=== PATIENT | female | born 1990 | race Caucasian/White ===

== ENCOUNTER 2016-10-29 18:33 | Emergency (ER) | payer OTHER ==
[~2016-10-29] VITALS: Ht 172.7 cm; Wt 113.4 kg
--- NOTE | ~2016-10-29 | EKG ---
[address] [employer] [place] [address] ELECTROCARDIOGRAM REPORT Name: CHAKA PULLIAM [id number] Admission: 10/29/16 Attend Phys: Discharge: 10/29/16 Date of : 86 Report #: [id number] THIS REPORT FOR: //name// [facility] ED Test Date: 2016-10-29 Test Time: 18:36:36 Pat Name: CHAKA PULLIAM Department: Room: Gender: F Javascript Web Developer: : 1990 Requested By: Beverley Cr Order Number: [id number] MD: Gerry Ahumada Measurements Intervals [place] Rate: 99 P: 57 DE: 128 QRS: 66 QRSD: 78 T: -15 QT: 323 QTc: 415 Interpretive Statements Sinus rhythm Borderline repolarization abnormality Compared to ECG 08/24/2016 13:36:25 No significant changes Electronically Signed On 10-30-2016 8:40:21 CDT by Gerry Ahumada [email or web address] <ELECTRONICALLY SIGNED> By: Gerry hAumada MD, [facility] 10/30/16 0840 [id number] Gerry Ahumada MD, FACC /EPI
[~2016-10-29 18:33] MED LIST: CARAFATE 1 GM TA1 G1 PO; NOHOMEMEDICATIONS; NORCO 5-325 TA1 EACH PO; PEPCID AC20 MG PO
[2016-10-29 20:05] LABS: HEMATOCRIT 30.3 % (37.0-47.0); HEMOGLOBIN 9.5 gm/dL (12.0-15.0); MANUAL DIFF YES; MCH 20.1 pg (26.0-34.0); MCHC 31.2 g/dL (28.0-37.0); MCV 64.5 fL (80.0-100.0); PLATELET COUNT 242 thou/uL (150-400); RDW 19.7 % (10.5-14.5); WBC 10.1 thou/uL (4.0-11.0)
[2016-10-29 20:08] LABS: CALCIUM 8.4 mg/dL (8.5-10.1); CREATININE 0.8 mg/dL (0.6-1.0); MAGNESIUM 1.7 mg/dL (1.8-2.4); POTASSIUM 3.8 mmol/L (3.5-5.1)
[2016-10-29 20:29] LABS: ABSOLUTE NEUTROPHILS 7.4 thou/uL (1.4-8.2); ANISOCYTOSIS 1+; HYPOCHROMASIA 1+; MICROCYTES 1+; TOTAL CELL COUNT 100
[2016-10-29 20:55] VITALS: BP 152/86
== END 2016-10-29 21:04 | disposition home or self-care (01) ==
LOC: ER 18:33
PROVIDERS: Emergency Medicine
DX: R00.2 Palpitations (principal); E83.42 Hypomagnesemia; D64.9 Anemia, unspecified

== ENCOUNTER → 2019-08-25 | Emergency (ER) | payer OTHER ==
[~2019-08-25] VITALS: Ht 170.2 cm; Wt 97.5 kg
[~2019-08-25] MED LIST changes: +DOXYCYCLINE 10100 MG PO; +NORCO 5-325 TA1 EAC1 PO
[2019-08-25 18:45] VITALS: BP 132/71
== END ==
LOC: ER 18:25
DX: Z53.21 Procedure and treatment not carried out due to patient leaving prior to being seen by health care provider (principal)

== ENCOUNTER 2019-08-26 08:57 | Emergency (ER) | payer OTHER ==
[~2019-08-26] VITALS: Ht 170.2 cm; Wt 97.5 kg
[~2019-08-26 08:57] MED LIST changes: -DOXYCYCLINE 10100 MG PO; -NORCO 5-325 TA1 EAC1 PO
[2019-08-26] MEDS ORDERED: DOXYCYCLINE 10100 MG PO (12:06)
[2019-08-26] MEDS ORDERED: NORCO 5-325 TA1 EAC1 PO (12:06)
[2019-08-26 12:08] VITALS: BP 119/84
== END 2019-08-26 12:20 | disposition home or self-care (01) ==
LOC: ER 08:57
DX: L72.3 Sebaceous cyst (principal)

== ENCOUNTER 2021-08-28 09:21 | Emergency (ER) | payer OTHER ==
[~2021-08-28] VITALS: Ht 170.2 cm; Wt 106.6 kg
[~2021-08-28 09:21] MED LIST changes: +DOXYCYCLINE 10100 MG PO; +NORCO 5-325 TA1 EAC1 PO
[2021-08-28 09:42] VITALS: BP 149/88
[2021-08-28] MEDS ORDERED: NAPROSYN500 MG PO (10:55)
== END 2021-08-28 11:27 | disposition home or self-care (01) ==
LOC: ER 09:21
DX: M25.561 Pain in right knee (principal); R22.41 Localized swelling, mass and lump, right lower limb; Z98.890 Other specified postprocedural states; X50.1XXA Overexertion from prolonged static or awkward postures, initial encounter; Y93.01 Activity, walking, marching and hiking; Y92.89 Other specified places as the place of occurrence of the external cause; Y99.8 Other external cause status